=== PATIENT | female | born 2000 | race Caucasian/White ===

== ENCOUNTER 2021-02-13 02:35 | Emergency (ER) | payer OTHER, SELFPAY ==
--- OUTSIDE RECORDS SUMMARY | 2021-02-13 02:39 | XMS REPORT | Continuity of Care Document ---
:2000 Author Organization [facility] t Address [address] [place] [address] Dr. Valverde. [address] [place] [id number] Care Team Providers Name Role Phone Dre Mackey MD Attending Clinician Problems This patient has no known problems. Allergies, Adverse Reactions, Alerts This patient has no known allergies or adverse reactions. Medications This patient has no known medications. Procedures This patient has no known procedures. Encounters Start End Encounter Admission Attending Care Care Encounter Source Date/Time Date/Time Type Type Clinicians Facility Department ID 2021-01-31 2021-01-31 [facility] PRADEEP Mackey [id number] 06:52:06 18:03:55 ne Visit [email or web address] [id number] [place] [id number] Profshyann [id number] nal [address] One Results This patient has no known results.
[2021-02-13 03:15] LABS: Urine Blood NEGATIVE (Negative); Urine Glucose NEGATIVE (Negative); Urine Protein NEGATIVE (NEG); Urine Specific Gravity 1.015 (1.005-1.030); Urine Specific Gravity/Preg 1.015 (1.005-1.030)
[2021-02-13] MEDS ORDERED: FAMOTIDINE 20 MG/2 ML VIAL IV ONE (03:15)
[2021-02-13] MEDS ORDERED: ONDANSETRON 4 MG/2 ML VIAL ONE (03:15)
[2021-02-13] MEDS ORDERED: NA CHLORIDE 0.9% 1,000 ML ONE (03:15)
--- NOTE | 2021-02-13 03:51 | EDPHYS ---
Physician Documentation [facility] Name: Anjel Stevens Age: 20 yrs Sex: Female : 2000 Arrival Date: 02/13/2021 Time: 02:39 Bed 8 Private MD: ED Physician Markos Landon HPI: 02/13 03:43 This 20 yrs old Female presents to ER via EMS with complaints of Swallowed mh7 Foreign Body. 03:43 The patient or guardian reports the patient has a suspected foreign body, that has been mh7 ingested. The reported likely foreign body is vape cartridge. Onset: The symptoms/episode began/occurred today, at 00:15. Current symptoms: nausea, vomiting. Treatment Prior to Arrival: none. 03:43 Swallowed cartridge from a CBD vape pen when pulled over by police trying to avoid mh7 going to care home. Also admits to taking Xanax earlier. . Historical: - Allergies: 02:44 No Known Allergies; sf - Home Meds: 02:44 Omeprazole Oral [Active]; sertraline 100 mg oral tab 1 tab once daily [Active]; sf - PMHx: 02:44 Depression; Bipolar disorder; Anxiety; sf - Immunization history:: Adult Immunizations up to date. - Social history:: Smoking status: Patient reports the use of cigarette tobacco products, Reported history of juuling and/or vaping. Patient uses alcohol, occasionally. ROS: 03:43 Constitutional: Negative for fever, chills, and weight loss, Eyes: Negative for injury, mh7 pain, redness, and discharge, ENT: Negative for injury, pain, and discharge, Neck: Negative for injury, pain, and swelling, Cardiovascular: Negative for chest pain, palpitations, and edema, Respiratory: Negative for shortness of breath, cough, wheezing, and pleuritic chest pain, Back: Negative for injury and pain, : Negative for injury, bleeding, discharge, and swelling, MS/Extremity: Negative for injury and deformity, Skin: Negative for injury, rash, and discoloration, Neuro: Negative for headache, weakness, numbness, tingling, and seizure, Psych: Negative for depression, anxiety, suicide ideation, homicidal ideation, and hallucinations, Allergy/Immunology: Negative for hives, rash, and allergies, Endocrine: Negative for neck swelling, polydipsia, polyuria, polyphagia, and marked weight changes, Hematologic/Lymphatic: Negative for swollen nodes, abnormal bleeding, and unusual bruising. Exam: 03:43 Head/Face: Normocephalic, atraumatic. Eyes: Pupils equal round and reactive to light, mh7 extra-ocular motions intact. Lids and lashes normal. Conjunctiva and sclera are non-icteric and not injected. Cornea within normal limits. Periorbital areas with no swelling, redness, or edema. ENT: Nares patent. No nasal discharge, no septal abnormalities noted. Tympanic membranes are normal and external auditory canals are clear. Oropharynx with no redness, swelling, or masses, exudates, or evidence of obstruction, uvula midline. Mucous membranes moist. Neck: Trachea midline, no thyromegaly or masses palpated, and no cervical lymphadenopathy. Supple, full range of motion without nuchal rigidity, or vertebral point tenderness. No Meningismus. Chest/axilla: Normal chest wall appearance and motion. Nontender with no deformity. No lesions are appreciated. Cardiovascular: Regular rate and rhythm with a normal S1 and S2. No gallops, murmurs, or rubs. Normal PMI, no JVD. No pulse deficits. Respiratory: Lungs have equal breath sounds bilaterally, clear to auscultation and percussion. No rales, rhonchi or wheezes noted. No increased work of breathing, no retractions or nasal flaring. Abdomen/GI: Soft, non-tender, with normal bowel sounds. No distension or tympany. No guarding or rebound. No evidence of tenderness throughout. Back: No spinal tenderness. No costovertebral tenderness. Full range of motion. Skin: Warm, dry with normal turgor. Normal color with no rashes, no lesions, and no evidence of cellulitis. MS/ Extremity: Pulses equal, no cyanosis. Neurovascular intact. Full, normal range of motion. Neuro: Awake and alert, GCS 15, oriented to person, place, time, and situation. Cranial nerves II-XII grossly intact. Motor strength 5/5 in all extremities. Sensory grossly intact. Cerebellar exam normal. Normal gait. 03:43 Constitutional: The patient appears in no acute distress, alert, awake, anxious. 03:43 Psych: Behavior/mood is anxious, Affect is animated, Oriented to person, place, time, Patient has no thoughts/intents to harm self or others. Judgement / Insight is normal. Memory is normal. Delusions/hallucinations are not present. Vital Signs: 02:35 BP 135 / 96; Pulse 108; Resp 24; Temp 98.4; Pulse Ox 100% ; Weight 70.31 kg; Height 5 sf ft. 4 in. (162.56 cm); Pain 4/10; 03:00 BP 137 / 98; Pulse 98; Resp 18; Pulse Ox 98% on R/A; lp1 02:35 Body Mass Index 26.61 (70.31 kg, 162.56 cm) sf MDM: 03:43 Data reviewed: vital signs, nurses notes, EMS record. Data interpreted: Pulse oximetry: [facility] on room air is 98 %. Interpretation: normal. Refusal of service: The patient/guardian displays adequate decision making capability and despite a detailed discussion of alternatives, benefits, risks, and consequences refuses: to wait for test results. 03:50 Patient medically screened. [facility] 02/13 02:47 Order name: Acetaminophen [facility] 02/13 02:47 Order name: Basic Metabolic Panel [facility] 02/13 02:47 Order name: CBC with Diff [facility] 02/13 02:47 Order name: ETOH Level [facility] 02/13 02:47 Order name: Hepatic Function [facility] 02/13 02:47 Order name: PT-INR [facility] 02/13 02:47 Order name: Ptt, Activated [facility] 02/13 02:47 Order name: Salicylate [facility] 02/13 02:47 Order name: Urine Drug Screen [facility] 02/13 02:48 Order name: Acetaminophen Level [facility] 02/13 02:48 Order name: Basic Metabolic Panel [facility] 02/13 02:48 Order name: CBC with Automated Diff [facility] 02/13 03:06 Order name: Urine Dipstick--Ancillary (enter results) [facility] 02/13 03:06 Order name: Urine --Ancillary (enter results) [facility] 02/13 02:47 Order name: EKG; Complete Time: 02:48 [facility] 02/13 02:47 Order name: EKG - Nurse/Tech [facility] 02/13 02:47 Order name: IV Saline Lock; Complete Time: 03:31 [facility] 02/13 02:47 Order name: Labs collected and sent; Complete Time: 03:32 [facility] 02/13 02:47 Order name: Urine Dipstick-Ancillary (obtain specimen); Complete Time: 03:06 [facility] 02/13 02:47 Order name: Urine Test (obtain specimen); Complete Time: 03:06 [facility] 02/13 02:47 Order name: Chest Single View XRAY [facility] 02/13 02:47 Order name: Abdomen 1 View XRAY [facility] 02/13 03:07 Order name: Urine Dipstick-Ancillary [facility] 02/13 03:07 Order name: Urine --Ancillary EDMS Administered Medications: 03:31 Drug: NS 0.9% 1000 ml Route: IV; Rate: 1000 ml; Site: right antecubital; lp1 Disposition: 02/13/21 03:50 Patient has left against medical advice. Impression: Swallowed Foreign Body. - Patients states they are going to Home. - Condition is Stable. - Discharge Instructions: Swallowed Foreign Body, Adult, [id number]. Follow up: Private Physician; When: 1 - 2 days; Reason: Worsening of condition, Recheck today's complaints, Continuance of care, Re-evaluation by your physician. - Problem is new. - Symptoms have improved. Signatures: Dispatcher [employer] EDMS Bing Almeida RN RN 1 Markos Landon MD MD 7 Abhinav Roach RN RN sf Corrections: (The following items were deleted from the chart) 03:54 03:50 02/13/2021 03:50 Patients has left against medical advice. Impression: Swallowed lp1 Foreign Body. Patient states they are going to Home. Condition is Stable. Follow up: Private Physician; When: 1 - 2 days; Reason: Worsening of condition, Recheck today's complaints, Continuance of care, Re-evaluation by your physician. Problem is new. Symptoms have improved. 7
--- NOTE | 2021-02-13 03:51 | ER ---
Nurse's Notes [facility] Name: Anjel Stevens Age: 20 yrs Sex: Female : 2000 Arrival Date: 02/13/2021 Time: 02:39 Bed 8 Private MD: Diagnosis: Swallowed Foreign Body Presentation: 02/13 02:35 Chief complaint: Patient states: Swallowed a glass/plastic cartridge for a vape pen. sf Also reports taking xanax for the first time today. Was sent from [facility]. Coronavirus screen: Client denies travel out of the [place] in the last 14 days. At this time, the client does not indicate any symptoms associated with coronavirus-19. Ebola Screen: Patient negative for fever greater than or equal to 101.5 degrees Fahrenheit, and additional compatible Ebola Virus Disease symptoms Patient denies exposure to infectious person. Patient denies travel to an Ebola-affected area in the 21 days before illness onset. No symptoms or risks identified at this time. Initial Sepsis Screen: Does the patient meet any 2 criteria? RR > 20 per min. HR > 90 bpm. Yes Does the patient have a suspected source of infection? No. Patient's initial sepsis screen is negative. Risk Assessment: Do you want to hurt yourself or someone else? Patient reports no desire to harm self or others. Onset of symptoms was February 13, 2021. 02:35 Method Of Arrival: EMS: [facility] 02:35 Acuity: NANCY 2 sf Triage Assessment: 02:35 General: Appears uncomfortable, Behavior is agitated, anxious, crying, restless. Pain: sf Complains of pain in left lower quadrant Pain does not radiate. Pain currently is 4 out of 10 on a pain scale. EENT: No signs and/or symptoms were reported regarding the EENT system. Neuro: No deficits noted. Level of Consciousness is awake, alert, Oriented to person, place, time, situation. Cardiovascular: Patient's skin is warm and dry. Respiratory: No deficits noted. Airway is patent Respiratory effort is even, unlabored, Respiratory pattern is regular, symmetrical. GI: Abdomen is non-distended, Reports lower abdominal pain, vomiting. : No signs and/or symptoms were reported regarding the genitourinary system. Historical: - Allergies: 02:44 No Known Allergies; sf - Home Meds: 02:44 Omeprazole Oral [Active]; sertraline 100 mg oral tab 1 tab once daily [Active]; sf - PMHx: 02:44 Depression; Bipolar disorder; Anxiety; sf - Immunization history:: Adult Immunizations up to date. - Social history:: Smoking status: Patient reports the use of cigarette tobacco products, Reported history of juuling and/or vaping. Patient uses alcohol, occasionally. Screenin:53 Abuse screen: Denies threats or abuse. Denies injuries from another. Nutritional lp1 screening: No deficits noted. Tuberculosis screening: No symptoms or risk factors identified. Fall Risk None identified. Assessment: 02:45 General: Appears unkempt, Behavior is anxious, crying. Pain: Complains of pain in lp1 abdomen. Neuro: Level of Consciousness is awake, alert, obeys commands. Cardiovascular: Patient's skin is warm and dry. Respiratory: Airway is patent Respiratory effort is even, unlabored, Breath sounds are clear bilaterally. GI: Abdomen is non-distended, Reports attempting to vomit to remove CBD cartridge. : No signs and/or symptoms were reported regarding the genitourinary system. EENT: No signs and/or symptoms were reported regarding the EENT system. Derm: Skin is pink, warm \\T\\ dry. Musculoskeletal: No deficits noted. 02:51 Reassessment: Poison Control called, spoke with Glo; suggests PO challenge, Xray may lp1 visualize cartridge location; No harm suggested from CBD liquid; Case # [id number]. 03:32 Reassessment: Patient states "I don't want to be here anymore, I need to make it to my lp1 appointment at 10am"; Discussed orders with patient, agrees to have labs drawn at this time. 03:43 Reassessment: Patient expresses refusal of care, states "No disrespect but I have to lp1 make my appointment in the morning, I am ready to go"; electronic warfare officer at bedside; Dr. Landon notified. Vital Signs: 02:35 BP 135 / 96; Pulse 108; Resp 24; Temp 98.4; Pulse Ox 100% ; Weight 70.31 kg; Height 5 sf ft. 4 in. (162.56 cm); Pain 410; 03:00 BP 137 / 98; Pulse 98; Resp 18; Pulse Ox 98% on R/A; lp1 02:35 Body Mass Index 26.61 (70.31 kg, 162.56 cm) sf ED Course: 02:35 Arm band placed on. sf 02:39 Patient arrived in ED. mw2 02:43 Triage completed. sf 02:44 Bing Almeida, RN is Primary Nurse. lp1 02:44 Markos Landon MD is Attending Physician. [facility] 02:54 Patient has correct armband on for positive identification. lp1 03:18 Chest Single View XRAY In Process Unspecified. EDMS 03:18 Abdomen 1 View XRAY In Process Unspecified. EDMS 03:20 Inserted saline lock: 20 gauge in right antecubital area, using aseptic technique. lp1 Blood collected. 03:46 IV discontinued, No redness/swelling at site. Pressure dressing applied. lp1 Administered Medications: 03:31 Drug: NS 0.9% 1000 ml Route: IV; Rate: 1000 ml; Site: right antecubital; lp1 Outcome: 03:46 AMA AMA form signed lp1 03:46 Condition: stable 03:46 Instructed on returning to ED if symptoms worsen; escorted out of ED with [place] [employer] 03:54 Patient left the ED. lp1 Signatures: Dispatcher [employer] Bing Noonan, RN RN 1 Jessica Limon 2 Markos Landon MD MD 7 Abhinav Roach RN RN Corrections: (The following items were deleted from the chart) 02:53 02:51 Reassessment: Poison Control called, spoke with Glo; suggests PO challenge, Xray lp1 may visualize cartridge location; No harm suggested from CBD liquid lp1
[2021-02-13 03:54] LABS: Barbiturates NEGATIVE (NEGATIVE); Benzodiazepines POSITIVE (NEGATIVE); Cocaine NEGATIVE (NEGATIVE); METHAMPHETAM NEGATIVE (NEGATIVE); Methadone NEGATIVE (NEGATIVE); Opiates NEGATIVE (NEGATIVE); Phencyclidine NEGATIVE (NEGATIVE); THC Cannibis POSITIVE (NEGATIVE)
[2021-02-13 04:11] LABS: MPV 8.3 fL (7.6-11.3)
[2021-02-13 04:14] LABS: Protime INR 0.9
[2021-02-13 04:16] LABS: Absolute Lymphocytes (CBC) 2.4 K/uL (0.7-4.9); Basophils % 0.6 % (0-1.3); Hematocrit 45.9 % (36.0-45.0); Lymphocytes % 50.6 % (15.3-44.8); RBC Red Blood Cell Count 4.67 M/uL (3.86-4.86)
[2021-02-13 04:19] VITALS: BP 137/98; O2SAT 98
[2021-02-13 04:20] VITALS: TEMP 98.4
[2021-02-13 04:25] LABS: ALT/SGPT 84 U/L (12-78); AST/SGOT 73 U/L (15-37); Albumin 3.5 g/dL (3.4-5.0); Alkaline Phosphatase 113 U/L (45-117); BUN Blood Urea Nitrogen 7 mg/dL (7-18); Bicarbonate 34 mmol/L (21-32); Bilirubin Direct 0.2 mg/dL (0-0.2); Bilirubin Total 0.8 mg/dL (0.2-1.0); Glucose Level 70 mg/dL (74-106); Protein, Total 7.3 g/dL (6.4-8.2); Sodium Level 142 mmol/L (136-145)
[2021-02-13 04:29] LABS: Potassium 2.8 mmol/L (3.5-5.1)
[2021-02-13 06:26] LABS: Blood Morphology Comment NOT SEEN (NOT SEEN); Platelet Estimate ADEQ
--- NOTE | 2021-02-13 08:23 | RAD REPORT ---
EXAM DESCRIPTION: RAD - Chest Single View - 02/13/2021 3:19 am CLINICAL HISTORY: swallowed foreign body COMPARISON: None TECHNIQUE: AP portable chest image was obtained 02/13/2021 3:19 am . FINDINGS: Lungs are clear. Heart and vasculature are normal. No measurable pleural effusion and no p neumothorax. No acute bony abnormality seen. Thoracic scoliosis present. No acute aortic findings mary pected. IMPRESSION: No acute cardiopulmonary process.
--- NOTE | 2021-02-13 08:23 | RAD REPORT ---
EXAM DESCRIPTION: RAD - Abdomen Single View - 02/13/2021 3:34 am CLINICAL HISTORY: swallowed foreign body COMPARISON: Chest Single View dated 02/13/2021 FINDINGS: Bowel gas pattern is non-specific. No obstruction, free air or pneumatosis. Ingested meta llic foreign body is in the left upper quadrant corresponding to the stomach. IUD is in place in the midline pelvis. IMPRESSION: Metallic foreign body in the stomach.
== END 2021-02-13 03:54 | disposition left against medical advice (07) ==
LOC: ER 02:35
DX: T18.9XXA Foreign body of alimentary tract, part unspecified, initial encounter (principal); F31.9 Bipolar disorder, unspecified; Z72.0 Tobacco use
CPT/HCPCS: 36415; 71045; 74018; 80048; 80076; 80307; 80320; 80329; 81003; 81025; 85025; 85610; 85730; 99284; J2405; J7030

== ENCOUNTER 2025-06-28 05:13 | Emergency (ER) | payer OTHER ==
[2025-06-28 05:57] LABS: Absolute Lymphocytes (CBC) 3.0 K/uL (0.7-4.9); Hematocrit 50.3 % (36.0-45.0); Hemoglobin 17.5 g/dL (12.0-15.0); MCH 32.4 pg (27.0-35.0); MCHC 34.8 g/dL (32.0-36.0); MCV 93.0 fL (80-100); MPV 8.1 fL (7.6-11.3); Nucleated RBC Absolute Count 0.0 (0-0); Nucleated Red Blood Cells % 0.1 % (0-0); RBC Red Blood Cell Count 5.41 M/uL (3.86-4.86); White Blood Count 10.80 thou/uL (4.3-10.9)
[2025-06-28 06:07] LABS: PT Prothrombin Time 11.2 SECONDS (10-13.0); PTT, Activated Partial Thromb 30.9 SECONDS (27.2-37.4); Protime INR 0.99
[2025-06-28 06:11] LABS: METHAMPHETAM NEGATIVE (NEGATIVE); THC Cannibis NEGATIVE (NEGATIVE)
[2025-06-28 06:19] LABS: ALT/SGPT 39 U/L (13-56); AST/SGOT 23 U/L (15-37); Albumin 4.2 g/dL (3.4-5.0); Albumin/Globulin Ratio 1.1 (1.1-1.8); Alkaline Phosphatase 81 U/L (45-117); Anion Gap 11.1 mEq/L (5.0-15.0); BUN Blood Urea Nitrogen 5 mg/dL (7-18); Bilirubin Indirect, Calculated 0.5 mg/dL (0.2-0.8); Globulin 3.9 g/dL (2.3-3.5); Glucose Level 120 mg/dL (74-106); Potassium 3.1 mEq/L (3.5-5.1)
--- NOTE | 2025-06-28 07:19 | RAD REPORT ---
EXAM: CT brain without contrast HISTORY: Alteration of consciousness/confusion COMPARISON: None TECHNIQUE: Multiple contiguous axial images were obtained and a CT of the brain without contrast.. Sagittal and coronal reconstruction performed. Automated exposure control, adjustment of the mA and/or kV according to patient size, and/or iterative reconstruction. Unless otherwise specified, incidental f indings do not require dedicated imaging follow-up FINDINGS: An intracranial bleed is not seen Prominent fluid collection posterior fossa presumably A- cisterna magna. Ventricles are normal caliber No significant hypodensity within the brain No fluid within the visualized sinuses or mastoids noted. IMPRESSION: No acute intracranial abnormality noted. If the patient continues to have symptoms to suggest an acute intracranial abnormality then MRI of th e brain would be recommended.
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
--- NOTE | 2025-06-28 08:30 | ER ---
Nurse's Notes [facility] Name: Anjel Stevens Age: 24 yrs Sex: Female : 2000 Arrival Date: 06/28/2025 Time: 05:13 Bed 8 Private MD: Diagnosis: Alcohol abuse with intoxication;Bipolar disorder, unspecified Presentation: 06/28 05:57 Chief complaint: Patient states: AMS,ETOH. Coronavirus screen: At this time, unable to kd4 obtain information related to travel outside the [place] Ebola Screen: Unable to complete the Ebola screening because: The patient is disoriented. Initial Sepsis Screen: Does the patient meet any 2 criteria? No. Patient's initial sepsis screen is negative. Does the patient have a suspected source of infection? No. Patient's initial sepsis screen is negative. Risk Assessment: Do you want to hurt yourself or someone else? Unable to obtain. 05:57 Method Of Arrival: EMS kd4 05:57 Acuity: NANCY 2 kd4 Triage Assessment: 05:57 General: Appears uncomfortable, Behavior is drowsy, uncooperative, Smells of alcohol. kd4 Neuro: Level of Consciousness is confused. Respiratory: Airway is patent. Historical: - Allergies: 08:14 No Known Allergies; bp - PMHx: 08:14 Anxiety; Bipolar disorder; Depression; bp - Immunization history:: Adult Immunizations unknown. - Infectious Disease History:: Denies. - Social history:: Smoking status: unknown. Assessment: 07:00 General: Appears unkempt, Behavior is anxious, crying. Pain: Denies pain. Neuro: Level bp of Consciousness is awake, obeys commands. Cardiovascular: Rhythm is sinus tachycardia. Respiratory: No deficits noted. GI: No signs and/or symptoms were reported involving the gastrointestinal system. : No signs and/or symptoms were reported regarding the genitourinary system. EENT: No deficits noted. Derm: No deficits noted. Musculoskeletal: No deficits noted. Vital Signs: 05:57 BP 157 / 121; Pulse 78; Resp 17; Temp 97.5(O); Pulse Ox 95% ; Pain 0/10; kd4 08:14 BP 140 / 100; Pulse 116; Resp 18; Pulse Ox 100% ; bp 05:57 Pain Scale: Adult kd4 [place] Coma Score: 06:01 Eye Response: to voice(3). Motor Response: localizes pain(5). Verbal Response: kd4 confused(4). Total: 12. ED Course: 05:14 Patient arrived in ED. jj6 05:18 Andres Dick DO is Attending Physician. ms3 05:57 EKG completed in triage. Results shown to MD. EKG done per protocol. Performed by ED kd4 Staff. Urine obtained. Labs ordered per protocol. Drawn by ED staff. CT ordered. 05:59 Triage completed. kd4 07:00 Inserted saline lock: 20 gauge in right antecubital area, using aseptic technique. bp 07:07 Jatin Abbott, RN is Primary Nurse. bp 07:10 CT Head Brain wo Cont In Process Unspecified. EDMS 07:16 Attending Physician role handed off by Andres Dick DO el 07:16 Lukas Chavarria MD is Attending Physician. el 08:29 Chu Barry MD is Referral Physician. el Administered Medications: 08:15 Drug: Banana Bag - (Multivitamin IV 1 amp, NS 0.9% IV 1000 ml, Thiamine IV 100 mg, bp foLIC Acid IVPB 1 mg) IV at 500 ml/hr once Route: IV; Rate: 500 ml/hr; Site: right antecubital; Outcome: 08:29 Discharge ordered by . el 09:50 Patient left the ED. db Signatures: Dispatcher [employer] [facility] Lukas Chavarria MD MD cha Peltier, Brian, RN RN bp Andres Dick DO DO ms3 Leatha Le jj6 Nina Kimbrough, RN RN db Jordon Smith RN RN kd4
[2025-06-28] MEDS ORDERED: MULTIVITAMINS 10 ML VIAL (INJ) IV ONE (08:38)
[2025-06-28] MEDS ORDERED: THIAMINE 200 MG/2 ML INJ ONE (08:38)
[2025-06-28] MEDS ORDERED: FOLIC ACID 5 MG/ML VIAL ONE (08:39)
[2025-06-28] MEDS ORDERED: NA CHLORIDE 0.9% 1,000 ML ONE (08:39)
[2025-06-28 10:03] VITALS: TEMP 97.5
[2025-06-28 10:06] VITALS: BP 140/100; O2SAT 100
== END 2025-06-28 09:50 | disposition home or self-care (01) ==
LOC: ER 05:13
DX: F10.129 Alcohol abuse with intoxication, unspecified (principal); F31.9 Bipolar disorder, unspecified
CPT/HCPCS: 93005; 85025; 80048; 36415; 81025; 85610; 80076; 85730; 80307; 70450; 96374; 99284; 80143; 80179; 82077; J3411; J7030

== ENCOUNTER 2025-06-28 10:17 | Emergency (ER) | payer OTHER ==
[2025-06-28 11:08] LABS: Absolute Lymphocytes (CBC) 3.3 K/uL (0.7-4.9); Hematocrit 45.8 % (36.0-45.0); Hemoglobin 16.0 g/dL (12.0-15.0); MCH 32.3 pg (27.0-35.0); MCHC 35.0 g/dL (32.0-36.0); MCV 92.4 fL (80-100); MPV 7.9 fL (7.6-11.3); Nucleated RBC Absolute Count 0.0 (0-0); Nucleated Red Blood Cells % 0.1 % (0-0); RBC Red Blood Cell Count 4.95 M/uL (3.86-4.86); White Blood Count 8.40 thou/uL (4.3-10.9)
[2025-06-28 12:33] LABS: Anion Gap 9.3 mEq/L (5.0-15.0); BUN Blood Urea Nitrogen 5.0 mg/dL (7-18); Glucose Level 101.0 mg/dL (74-106); Potassium 3.3 mEq/L (3.5-5.1)
[2025-06-28 12:34] LABS: ALT/SGPT 32.0 U/L (13-56); AST/SGOT 19.0 U/L (15-37); Albumin 3.1 g/dL (3.4-5.0); Albumin/Globulin Ratio 1.0 (1.1-1.8); Alkaline Phosphatase 63.0 U/L (45-117); Bilirubin Indirect, Calculated 0.4 mg/dL (0.2-0.8); Globulin 3.2 g/dL (2.3-3.5)
[2025-06-28] MEDS ORDERED: Ringers Lactate 1,000 ML IV ONE (13:00)
--- NOTE | 2025-06-28 13:55 | EDPHYS ---
Physician Documentation [facility] Name: Anjel Stevens Age: 24 yrs Sex: Female : 2000 Arrival Date: 06/28/2025 Time: 10:17 Bed DX1 Private MD: ED Physician Lukas Chavarria HPI: 06/28 10:51 This 24 yrs old Female presents to ER via EMS with complaints of Altered Mental Status. sb4 10:51 Patient seen here earlier this morning for altered mental status secondary to EtOH sb4 abuse -EtOH level was 486. Patient was discharged, was ambulated without difficulty, called her mom for a ride home and her mom told her to walk. A bystander called PD because she stumbling in the parking lot. Historical: - Allergies: 10:35 No Known Allergies; iw - PMHx: 10:34 Bipolar disorder; Anxiety; Depression; iw ROS: 10:51 Constitutional: Negative for fever, chills, and weight loss, sb4 10:51 All other systems are negative, Exam: 10:51 Head/Face: Normocephalic, atraumatic. Eyes: Extra-ocular motions intact. Periorbital sb4 areas with no swelling, redness, or edema. ENT: Mucous membranes moist. Respiratory: No increased work of breathing, no retractions or nasal flaring. Abdomen/GI: Soft, non-tender, no distension. Skin: Warm, dry with normal turgor. Normal color with no rashes, no lesions, and no evidence of cellulitis. 10:51 Constitutional: The patient appears in no acute distress, alert, awake, Vital Signs: 10:47 BP 148 / 89; Pulse 108; Resp 16; Temp 98.4(A); Pulse Ox 100% ; iw 12:16 BP 114 / 72; Pulse 109; Resp 16; Pulse Ox 97% on R/A; iw 13:05 Pulse 110; Resp 19; Pulse Ox 99% on R/A; iw 14:16 BP 120 / 91; Pulse 98; Resp 16; Pulse Ox 97% on R/A; Pain 0/10; iw 14:16 Pain Scale: Adult iw MDM: 10:29 Medical Screening Exam initiated sb4 10:51 ED course: Will recheck labs, hydrate patient, and discharge when clinically sober and sb4 with a ride home. 13:31 Differential Diagnosis: alcohol intoxication. Data reviewed: vital signs, nurses notes, sb4 EMS record, lab test result(s), I have discussed the patient's presentation/case with the attending Emergency Department Physician; and as a result, I will discharge patient. Counseling: I had a detailed discussion with the patient and/or guardian regarding the historical points, exam findings, and any diagnostic results supporting the discharge/admit diagnosis, lab results, to return to the emergency department if symptoms worsen or persist or if there are any questions or concerns that arise at home. 15:59 Consideration of Admission/Observation Escalation of care including sb4 admission/observation considered. 06/28 10:34 Order name: Basic Metabolic Panel; Complete Time: 12:37 sb4 06/28 10:34 Order name: CBC with Diff; Complete Time: 11:14 sb4 06/28 10:34 Order name: ETOH Level; Complete Time: 11:50 sb4 06/28 10:34 Order name: Hepatic Function; Complete Time: 12:37 sb4 06/28 10:34 Order name: IV Saline Lock; Complete Time: 10:50 sb4 06/28 10:34 Order name: Labs collected and sent; Complete Time: 10:50 sb4 06/28 11:05 Order name: Labs - recollect needed: recollect 2 green tops; Complete Time: 11:26 bd 06/28 11:53 Order name: Misc. Order: recollect green top; Complete Time: 12:01 sb4 Administered Medications: 10:50 Drug: NS 0.9% IV 1000 ml IV at 1000 ml once; to be given as a bolus over 60 minutes iw Route: IV; Rate: 1000 ml; Site: left hand; 12:00 Follow up: IV Status: Completed infusion iw 13:03 Drug: lactated ringers Solution 1000 ml IV at calculated rate once Route: IV; Rate: iw calculated rate; Site: left hand; 14:05 Follow up: IV Status: Completed infusion iw Disposition Summary: 06/28/25 13:55 Discharge Ordered Notes: Location: Home sb4 Problem: new sb4 Symptoms: have improved sb4 Condition: Stable sb4 Diagnosis - Alcohol abuse with intoxication sb4 Followup: sb4 - With: Emergency Department - When: As needed - Reason: Trouble breathing, Worsening of condition Discharge Instructions: - Discharge Summary Sheet sb4 - Alcohol Intoxication sb4 Forms: - Patient Portal Instructions sb4 - Leadership Thank You Letter sb4 Addendum: 07/01/2025 14:39 Co-signature as Attending Physician, Lukas Chavarria MD I agree with the assessment and c deras plan of care. Signatures: Dispatcher [employer] EDKavitha Latham Corey, MD MD cha Williams, Irene, RN RN Isatu Dominique, PAKylahC PAKylahC sb4
--- NOTE | 2025-06-28 13:55 | ER ---
Nurse's Notes [facility] Name: Anjel Stevens Age: 24 yrs Sex: Female : 2000 Arrival Date: 06/28/2025 Time: 10:17 Bed DX1 Private MD: Diagnosis: Alcohol abuse with intoxication Presentation: 06/28 10:33 Chief complaint: EMS states: found in parking lot, AMS, was d/c from ER for ETOH abuse iw , pt is oriented X 3 , denies pain or injuries. Coronavirus screen: At this time, the client does not indicate any symptoms associated with coronavirus-19. Ebola Screen: No symptoms or risks identified at this time. Initial Sepsis Screen: Does the patient meet any 2 criteria? HR > 90 bpm. Does the patient have a suspected source of infection? No. Patient's initial sepsis screen is negative. Risk Assessment: Do you want to hurt yourself or someone else? Patient reports no desire to harm self or others. Onset of symptoms was June 28, 2025. 10:33 Method Of Arrival: EMS: [facility] iw 10:33 Acuity: NANCY 3 iw Historical: - Allergies: 10:35 No Known Allergies; iw - PMHx: 10:34 Bipolar disorder; Anxiety; Depression; iw Screenin:15 [facility] ED Fall Risk Assessment (Adult) History of falling in the last 3 months, iw including since admission Yes- single mechanical fall (1 pt) Confusion or Disorientation Yes (5 pts) Intoxicated or Sedated Yes (3 pts) Impaired Gait No (0 pts) Mobility Assist Device Used No (0 pt) Altered Elimination No (0 pt) Score/Fall Risk Level 3 or more points = High Risk Oriented to surroundings, Maintained a safe environment, Educated pt \T\ family on fall prevention, incl call for assistance when getting out of bed. Abuse screen: Denies threats or abuse. Denies injuries from another. Nutritional screening: No deficits noted. Tuberculosis screening: No symptoms or risk factors identified. Assessment: 10:47 General: Appears in no apparent distress. obese, Behavior is drowsy. Pain: Denies pain. iw Neuro: Level of Consciousness is obeys commands, Oriented to person, place, time, situation. Cardiovascular: Patient's skin is warm and dry. Respiratory: Respiratory effort is even, unlabored, Respiratory pattern is regular, symmetrical. GI: Abdomen is non-distended, obese. Derm: Skin is intact, is healthy with good turgor, large area of psoriasis to right upper thigh. Musculoskeletal: Range of motion: intact in all extremities. 13:04 Reassessment: Patient appears in no apparent distress at this time. pt appears to be iw sleeping, awakens easily to verbal stimuli, requesting water. 14:16 Reassessment: Patient appears in no apparent distress at this time. Patient and/or iw family updated on plan of care and expected duration. Pain level reassessed. Patient states feeling better. Patient states symptoms have improved. 14:17 Reassessment: moved to recliner while waiting on her ride, mother en route. iw Vital Signs: 10:47 BP 148 / 89; Pulse 108; Resp 16; Temp 98.4(A); Pulse Ox 100% ; iw 12:16 BP 114 / 72; Pulse 109; Resp 16; Pulse Ox 97% on R/A; iw 13:05 Pulse 110; Resp 19; Pulse Ox 99% on R/A; iw 14:16 BP 120 / 91; Pulse 98; Resp 16; Pulse Ox 97% on R/A; Pain 0/10; iw 14:16 Pain Scale: Adult iw ED Course: 10:25 Patient arrived in ED. nh2 10:29 Isatu Sullivan PA-C is PHCP. sb4 10:29 Lukas Chavarria MD is Attending Physician. sb4 10:34 Triage completed. iw 10:35 Dorys Mayes, RN is Primary Nurse. iw 10:47 Arm band placed on. iw 10:47 Patient has correct armband on for positive identification. Bed in low position. Side iw rails up X2. Client placed on continuous cardiac and pulse oximetry monitoring. NIBP monitoring applied. hospital monitor on. 10:49 Initial lab(s) drawn, by ED staff, sent to lab. Maintain EMS IV. Dressing intact. Good iw blood return noted. Site clean \T\ dry. Gauge \T\ site: 20 left hand. Flushed with 10 mL NS. 11:26 Lab(s) recollected, by me, sent to lab. Inserted saline lock: 22 gauge in left nh2 antecubital area, using aseptic technique. Blood collected. Flushed with 10 mL NS. 12:01 Lab(s) recollected, by me, sent to lab. nh2 14:16 No provider procedures requiring assistance completed. IV discontinued, intact, iw bleeding controlled, No redness/swelling at site. Pressure dressing applied. Administered Medications: 10:50 Drug: NS 0.9% IV 1000 ml IV at 1000 ml once; to be given as a bolus over 60 minutes iw Route: IV; Rate: 1000 ml; Site: left hand; 12:00 Follow up: IV Status: Completed infusion iw 13:03 Drug: lactated ringers Solution 1000 ml IV at calculated rate once Route: IV; Rate: iw calculated rate; Site: left hand; 14:05 Follow up: IV Status: Completed infusion iw Medication: 10:50 VIS not applicable for this client. iw Outcome: 13:55 Discharge ordered by MD. lopez 14:57 Discharged to home ambulatory, with family, iw 14:57 Condition: good 14:57 Discharge instructions given to patient, Instructed on discharge instructions, follow up and referral plans. Demonstrated understanding of instructions, follow-up care, 14:57 Patient left the ED. iw Signatures: Dorys Mayes, RN RN iw Isatu Sullivan, PA-C PA-C sb4 Kyaw Triplett Jr, RN RN nh2
[2025-06-28 16:00] VITALS: TEMP 98.4
[2025-06-28 16:08] VITALS: BP 120/91; O2SAT 97
== END 2025-06-28 14:57 | disposition home or self-care (01) ==
LOC: ER 10:17
DX: F10.129 Alcohol abuse with intoxication, unspecified (principal)
CPT/HCPCS: 96365; 96361; 85025; 80048; 36415; 80076; 99285; 82077; J7120